=== PATIENT | male | born 1995 | race Caucasian/White ===

== ENCOUNTER 2023-04-26 06:38 | Observation (INO) ==
--- NOTE | 2023-04-26 07:00 | Emergency Department Note ---
Impression & Plan Acute appendicitis ED Provider Note Provider: Nelson Duff MD DATE OF SERVICE: 04/26/2023 CHIEF COMPLAINT: Abdominal discomfort HISTORY OF PRESENT ILLNESS: Patient is a 28-year-old gentleman presenting here stating that experiencing discomfort in his abdomen in the lower abdomen. Denies any nausea vomiting or diarrhea. Denies trauma. Denies significant chest pain or shortness of breath. States he feels most like he is hungry and is intense in nature in the lower abdominal region. Denies urinary issues. States initially little bit discomfort last Wednesday and then last and Wednesday. Was doing better on Wednesday but then yesterday particular yesterday evening into today more intense. Did try some citric acid the other day without improvement. Food and drink does not seem to change things and states he has been trying to stay hydrated. Denies a history of abdominal surgeries. Maybe a twinge of back discomfort earlier but none now. Denies discomfort. 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 NECK: Trachea midline. ENT: Mucous membranes pink and moist. LUNGS: Airway patent. No retractions. Breath sounds clear with good air entry bilaterally. HEART: Regular rate and rhythm. No chest wall tenderness ABDOMEN: Soft mid lower to right-sided abdominal tenderness. No left upper quadrant tenderness. No guarding. Not peritoneal. No significant flank tenderness. SKIN: Acyanotic, warm, dry, without rashes EXTREMITIES: Without swelling, tenderness or deformity NEUROLOGICAL: No focal deficits. No aphasia. No facial droop or slurred speech. Ambulatory. Patient's laboratory studies and imaging reviewed. Differential includes Appendicitis, testicular torsion, infections, diverticulitis, UTI, obstruction, mesenteric ischemia, aortic pathology, inflammatory bowel disease, renal colic, PUD, pancreatitis, biliary pathology, hernia, volvulus, constipation, as well as other pathologies. IMPRESSION/MEDICAL DECISION MAKING: Patient well-appearing and ambulatory. Mid to right-sided lower abdominal discomfort. Denies genital discomfort. No reproducible back pain with only a slight twinge earlier. Symptoms on and off for the last several days worse in the last couple of days. No nausea vomiting or diarrhea reported. Does not seem peritoneal. No history of abdominal surgeries. Given some Pepcid and Toradol here initially for symptom control. Given a bit of IV fluid. Blood work obtained. Urinalysis sent. Will obtain CT scanning of the pelvis to look for intra-abdominal pathology such as appendicitis, colitis, or obstruction but not presenting with classic obstructive symptoms. Does not seem that classic for cholecystitis or pancreatitis/hepatitis based on location and constellation of symptoms. Blood work here without anemia or thrombocytopenia but a mild leukocytosis of 13.9 is noted. Urinalysis without blood or white blood cells and thus not given thing for infection but is a bit concentrated with ketones. Again receiving IV fluids here. CT scan per radiology concerning for acute appendicitis with dilation to 12 mm and possibly small distal rupture with a 3.3 x 2.4 cm abscess. Given a dose of Zosyn here for antibiotic coverage. Findings seem consistent with appendicitis and likely early rupture. Abscess at the tip the appendix is not large in size. Not peritoneal on exam or in severe sepsis/septic shock. Discussed with general surgery Dr. Lee who will evaluate the patient for further care. Patient updated. 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[employer]) Feels Safe at Home: Yes Allergies Allergies Allergy/AdvReac Type Severity Reaction Status Date / Time No Known Allergies Allergy Unverified 07/12/21 15:22 Home Meds Home Medications Medication Instructions Recorded Confirmed No Known Home Medications 04/26/23 04/26/23 Results & Data (ED) Vital Signs Vital Signs - 24 hr 04/26/23 06:40 04/26/23 07:00 04/26/23 08:27 Temperature 36.4 C L Temperature Source Temporal Artery Scan Pulse Rate 117 H 77 Pulse Rate [Apical] Pulse Rate [Left Finger] 94 H Pulse Rate [Right Finger] Pulse Rhythm Regular Pulse Rhythm [Apical] Pulse Rhythm [Right Finger] Pulse Strength [Right Finger] Respiratory Rate 17 18 16 Respiratory Effort / Characteristics Non-Labored Respiratory Depth Normal Respiratory Pattern Blood Pressure 107/77 Blood Pressure [Left Arm] 109/66 Blood Pressure Mean 87 Blood Pressure Mean [Left Arm] 80 Blood Pressure Position [Left Arm] Pulse Oximetry 96 98 98 Oxygen Delivery Method Room Air Room Air Room Air Oxygen Flow Rate Sepsis Recent Fever Within 48 Hours No Sepsis New/Unexplained Change in Mental Status No Sepsis Action Taken by Nursing No Action Required 04/26/23 11:00 04/26/23 12:31 04/26/23 13:58 Temperature 37.1 C 37.2 C Temperature Source Oral Temporal Artery Scan Pulse Rate Pulse Rate [Apical] 77 Pulse Rate [Left Finger] 96 H Pulse Rate [Right Finger] 106 H Pulse Rhythm Pulse Rhythm [Apical] Regular Pulse Rhythm [Right Finger] Regular Pulse Strength [Right Finger] Normal Respiratory Rate 20 18 10 L Respiratory Effort / Characteristics Non-Labored Spontaneous Non-Labored Spontaneous Respiratory Depth Normal Normal Respiratory Pattern Regular Regular Blood Pressure Blood Pressure [Left Arm] 102/72 110/64 114/63 Blood Pressure Mean Blood Pressure Mean [Left Arm] 82 79 80 Blood Pressure Position [Left Arm] Lying Semi-fowlers Pulse Oximetry 98 98 100 Oxygen Delivery Method Room Air Oxymask Oxygen Flow Rate 7 Sepsis Recent Fever Within 48 Hours Sepsis New/Unexplained Change in Mental Status Sepsis Action Taken by Nursing Laboratory Data 04/26/23 07:03 04/26/23 07:03 Lab Results 04/26/23 04/26/23 Range/Units 07:03 08:41 WBC 13.93 H (4.8-10.8) K/ul RBC 5.11 (4.70-6.10) M/uL Hgb 15.5 (14.0-18.0) g/dl Hct 44.6 (42.0-52.0) % MCV 87.3 (80.0-100.0) fL MCH 30.3 (25.0-34.0) pg MCHC 34.8 (32.0-36.0) g/dL RDW Std Deviation 37.7 (36.4-46.3) fL RDW Coeff of [place] 11.7 (11.5-14.5) % Plt Count 298 (130-400) K/uL MPV 9.7 (9.4-12.4) fL Immature Gran % (Auto) 0.3 % Neut % (Auto) 83.3 % Lymph % (Auto) 7.5 % [place] % (Auto) 8.0 % Eos % (Auto) 0.7 % Baso % (Auto) 0.2 % Neut # (Auto) 11.60 H (1.40-6.50) K/uL Lymph # (Auto) 1.04 L (1.20-3.40) K/uL [place]y # (Auto) 1.12 H (0.11-0.59) K/uL Eos # (Auto) 0.10 (0.00-0.50) K/uL Baso # (Auto) 0.03 (0.00-0.20) K/uL Immature Gran # (Auto) 0.04 (0.01-0.20) K/uL Sodium 137 (136-145) mmol/L Potassium 3.6 (3.5-5.1) mmol/L Chloride 101 (98-107) mmol/L Carbon Dioxide 27 (21-32) mmol/L Anion Gap 9 (3-11) BUN 10 (6-23) mg/dl Creatinine 0.59 L (0.6-1.4) mg/dl Est Cr Clr Drug Dosing 158.0 ml/min Est GFR ( Amer) > 150.0 ml/min Est GFR (Non-Af Amer) 138.8 ml/min BUN/Creatinine Ratio 16.9 (10-20) Glucose 101 H (70-99(Fasting)) mg/dl Calcium 9.2 (8.6-10.3) mg/dl Total Bilirubin 1.0 (0.2-1.0) mg/dl AST 17 (13-39) U/L ALT 14 (7-52) U/L Alkaline Phosphatase 70 (34-104) U/L Total Protein 8.0 (6.0-8.3) gm/dl Albumin 4.6 (3.4-5.0) gm/dl Globulin 3.4 (2.5-4.0) gm/dl Albumin/Globulin Ratio 1.4 (0.9-2) Lipase 12 (11-82) U/L Urine Color Dark Yellow Urine Appearance Clear (Clear) Urine pH 6.0 (4.5-7.5) Ur Specific [place] 1.032 H (1.000-1.030) Urine Protein Trace H (Negative) Urine Glucose (UA) Negative (Negative) Urine Ketones 4+ H (Negative) Urine Blood Negative (Negative) Urine Nitrite Negative (Negative) Urine Bilirubin 1+ H (Negative) Urine Urobilinogen Negative (Negative) Ur Leukocyte Esterase Negative (Negative) Urine WBC (Auto) 1-5 (0-5) /hpf Urine RBC (Auto) 0-4 (0-4) /hpf U Hyaline Cast (Auto) 1-5 (0-5) /lpf U Epithel Cells (Auto) 0-5 (0-5) /lpf Urine Bacteria (Auto) Negative (Negative) SARS-CoV-2, RNA, NAAT NEGATIVE (NEGATIVE) Administered Medications Lactated Ringer's (Lr) 1,000 mls @ 15 mls/hr IV .Q24H ONEYDA Stop: 05/26/23 12:44 Last Infusion: 04/26/23 12:55 Dose: Infused Documented By: Admin: 04/26/23 12:42 Dose: 15 mls/hr Documented By: AMBAR Discontinued Medications Bupivacaine HCl/Epinephrine Bitart (Bupivacaine/Epinephrine 0.5% Mpf 1:200,000 30 Ml Vial) Confirm Administered Dose 30 ml .ROUTE .STK-MED ONE Stop: 04/26/23 12:00 Last Admin: 04/26/23 13:40 Dose: 20 ml Documented By: MARLON Sodium Chloride (Nss) 500 mls @ 999 mls/hr IV .Q31M STA Stop: 04/26/23 07:16 Last Infusion: 04/26/23 07:33 Dose: Infused Documented By: Admin: 04/26/23 07:02 Dose: 999 mls/hr Documented By: SIMBA Famotidine (Pepcid 20mg Iv Push) 20 mg in 5 mls @ 2.5 mls/min IV NOW STA Stop: 04/26/23 06:58 Last Admin: 04/26/23 07:14 Dose: 2.5 mls/min Documented By: SIMBA Sodium Chloride (Nss) 1,000 mls @ 999 mls/hr IV .Q1H1M ONE Stop: 04/26/23 08:39 Last Infusion: 02/19/24 10:11 Dose: Infused Documented By: Admin: 04/26/23 09:10 Dose: 999 mls/hr Documented By: SIMBA Piperacillin Sod/Tazobactam Sod (Zosyn) 4.5 gm in 100 mls @ 200 mls/hr IV NOW ONE Stop: 04/26/23 09:24 Last Infusion: 04/26/23 09:40 Dose: Infused Documented By: Admin: 04/26/23 09:10 Dose: 200 mls/hr Documented By: SIMBA Ioversol (Optiray 320 500ml) 94 ml IV ONCE ONE Stop: 04/26/23 08:11 Last Admin: 04/26/23 08:11 Dose: 94 ml Documented By: WICHO Ketorolac Tromethamine (Ketorolac Tromethamine 15 Mg/Ml Vial) 10 mg IV NOW ONE Stop: 04/26/23 06:58 Last Admin: 04/26/23 07:16 Dose: 10 mg Documented By: SIMBA Imaging Data Radiologist's Impression: Abdomen/Pelvis CT 04/26/23 06:[address] WITH IV CONTRAST CT DOSE: 412.23 mGy.cm HISTORY: mid lower abd pain TECHNIQUE: Multiaxial CT images of the abdomen and pelvis were performed following the use of intravenous contrast. A dose lowering technique was utilized adhering to the principles of ALARA. COMPARISON STUDY: None. FINDINGS: The lung bases are clear. No pneumoperitoneum. No pneumatosis. No acute fractures identified. The liver, gallbladder, spleen, adrenal glands, pancreas, and kidneys are unremarkable. No hydronephrosis. The main portal vein is patent. Normal caliber abdominal aorta. No retroperitoneal or pelvic lymphadenopathy. Normal bladder. A 1 cm midline cyst within the prostate gland favoring a utricle cyst. Trace pelvic free fluid. No dilated loops of small bowel to suggest an obstruction. Mild thickening of the cecal base which is likely reactive. The appendix is diffusely thickened and measures up to 12 mm in diameter consistent with acute appendicitis. There is a 6 mm appendicolith within the tip the appendix. There is a small periappendiceal abscess at the tip the appendix measuring 3.3 x 2.4 cm. Therefore, this is consistent with focal perforation at the tip the appendix. No extra luminal gas identified this time. Thickening and adjacent terminal ileum is likely reactive to the acute appendicitis. IMPRESSION: 1. Acute appendicitis with an associated small periappendiceal abscess measuring 3.3 x 2.4 cm as described above. 2. Trace pelvic free fluid. This is likely reactive to the acute appendicitis. 3. Thickening of the cecal base and adjacent terminal ileum is likely reactive to the acute appendicitis. ACT 112: Negative or not required by law. Electronically signed by: Koby Barnes M.D. 04/26/2023 8:52 AM Discharge Plan Visit Data Chief Complaint: Abdominal Pain Stated Complaint: ABD PAIN ED Provider: Nelson Duff Discharge Problem: Acute appendicitis Patient Disposition: Being Evaluated by Surgeon Discharge Instructions Interventions: ED Discharge Assessment Last Done: 04/26/23 12:17 Forms Stand Alone Forms: Market[employer]rief Prescriptions Prescriptions: No Action No Known Home Medications Referrals Referrals: PCP,NO [Primary Care Provider] - Discharge Problem: Acute appendicitis Qualifiers: Acute appendicitis type: with localized peritonitis Appendicitis gangrene presence: with gangrene Appendicitis perforation presence: with perforation A ppendicitis abscess presence: with abscess Qualified Code(s): K35.33 - Acute appendicitis with perforation, localized peritonitis, and gangrene, with abscess
[2023-04-26] MEDS: SODIUM CHLORIDE 0.9% 500 ML IV STA (07:02)
[2023-04-26] MEDS: FAMOTIDINE 20MG IV PUSH 20 MG/5 ML SYR IV STA (07:14)
[2023-04-26] MEDS: KETOROLAC TROMETHAMINE 15 MG/ML VIAL IV ONE (07:16)
[2023-04-26 07:23] LABS: Appearance Urine Clear (Clear); Bacteria Urine Automated Negative (Negative); Blood Urine Negative (Negative); Color Urine Dark Yellow; Epithelial Cell Urine Auto 0-5 /lpf (0-5); Glucose Urine UA Negative (Negative); Ketones Urine 4+ (Negative); Leukocyte Esterase Urine Negative (Negative); Nitrite Urine Negative (Negative); Protein Urine Trace (Negative); RBC Urine Automated 0-4 /hpf (0-4); Specific Gravity Urine 1.032 (1.000-1.030); Urobilinogen Urine Negative (Negative)
[2023-04-26 07:26] LABS: Basophils # (auto) 0.03 K/uL (0.00-0.20); Basophils % (auto) 0.2 %; Eosinophils % (auto) 0.7 %; Hematocrit (blood only) 44.6 % (42.0-52.0); Hemoglobin 15.5 g/dl (14.0-18.0); Immature Granulocytes # (auto) 0.04 K/uL (0.01-0.20); Immature Granulocytes % (auto) 0.3 %; Lymphocytes # (auto) 1.04 K/uL (1.20-3.40); Lymphocytes % (auto) 7.5 %; Mean Corpuscular Hemoglobin 30.3 pg (25.0-34.0); Mean Corpuscular Hgb Conc 34.8 g/dL (32.0-36.0); Mean Corpuscular Volume 87.3 fL (80.0-100.0); Mean Platelet Volume 9.7 fL (9.4-12.4); Monocytes # (auto) 1.12 K/uL (0.11-0.59); Neutrophils % (auto) 83.3 %; Platelet Count 298 K/uL (130-400); RDW Coefficient of Variation 11.7 % (11.5-14.5); RDW Standard Deviation 37.7 fL (36.4-46.3); Red Blood Count 5.11 M/uL (4.70-6.10); White Blood Count 13.93 K/ul (4.8-10.8)
[2023-04-26 07:38] LABS: Bilirubin Urine 1+ (Negative)
[2023-04-26 07:43] LABS: Alanine Aminotransferase 14 U/L (7-52); Albumin Globulin Ratio 1.4 (0.9-2); Albumin Level 4.6 gm/dl (3.4-5.0); Alkaline Phosphatase 70 U/L (34-104); Anion Gap 9 (3-11); Aspartate Aminotransferase 17 U/L (13-39); BUN Creatinine Ratio 16.9 (10-20); Blood Urea Nitrogen 10 mg/dl (6-23); Calcium 9.2 mg/dl (8.6-10.3); Carbon Dioxide 27 mmol/L (21-32); Chloride 101 mmol/L (98-107); Est GFR (African American) > 150.0 ml/min; Est GFR (Non-African American) 138.8 ml/min; Globulin 3.4 gm/dl (2.5-4.0); Glucose 101 mg/dl (70-99(Fasting)); Lipase 12 U/L (11-82); Potassium 3.6 mmol/L (3.5-5.1); Sodium 137 mmol/L (136-145)
[2023-04-26] MEDS: OPTIRAY 320 500ml IV ONE (08:11)
--- NOTE | 2023-04-26 08:54 | CT Scan Report ---
ABDOMEN AND PELVIS CT WITH IV CONTRAST CT DOSE: 412.23 mGy.cm HISTORY: mid lower abd pain TECHNIQUE: Multiaxial CT images of the abdomen and pelvis were performed following the use of intrave nous contrast. A dose lowering technique was utilized adhering to the principles of ALARA. COMPARISON STUDY: None. FINDINGS: The lung bases are clear. No pneumoperitoneum. No pneumatosis. No acute fractures identifie d. The liver, gallbladder, spleen, adrenal glands, pancreas, and kidneys are unremarkable. No hydrone phrosis. The main portal vein is patent. Normal caliber abdominal aorta. No retroperitoneal or pelvic lymphadenopathy. Normal bladder. A 1 cm midline cyst within the prostate gland favoring a utricle cy st. Trace pelvic free fluid. No dilated loops of small bowel to suggest an obstruction. Mild thickeni ng of the cecal base which is likely reactive. The appendix is diffusely thickened and measures up to 12 mm in diameter consistent with acute appendicitis. There is a 6 mm appendicolith within the tip t he appendix. There is a small periappendiceal abscess at the tip the appendix measuring 3.3 x 2.4 cm. Therefore, this is consistent with focal perforation at the tip the appendix. No extra luminal gas i dentified this time. Thickening and adjacent terminal ileum is likely reactive to the acute appendici tis. IMPRESSION: 1. Acute appendicitis with an associated small periappendiceal abscess measuring 3.3 x 2.4 cm as desc ribed above. 2. Trace pelvic free fluid. This is likely reactive to the acute appendicitis. 3. Thickening of the cecal base and adjacent terminal ileum is likely reactive to the acute appendici tis. ACT 112: Negative or not required by law. Electronically signed by: Koby Barnes M.D. 04/26/2023 8:52 AM
[2023-04-26] MEDS: PIPERACILLIN/TAZOBACTAM 4.5 GM/100 ML BAG IV ONE (09:10)
[2023-04-26] MEDS: SODIUM CHLORIDE 0.9% 1,000 ML IV ONE (09:10)
--- NOTE | 2023-04-26 10:53 | Anesthesiology Consultation ---
Date of Service April 26, 2023 Assessment & Plan (1) Encounter for pre-operative examination: Chart Review Chart Review: Acceptable Risk for Surgery History Surgery Operation Date: 04/26/23 07:50 Proposed Procedures p Laparoscopic Appendectomy - Edil Lee MD Height/Weight Height: 5 ft 7 in Weight: 59.4 kg Allergies Allergy/AdvReac Type Severity Reaction Status Date / Time No Known Allergies Allergy Unverified 07/12/21 15:22 Medications Home Medications Medication Instructions Recorded Confirmed Last Taken No Known Home Medications 04/26/23 04/26/23 Unknown Past Medical History Medical History (Updated 04/26/23 @ 10:54 by Jorge Goddard MD) No active medical problems Past Family History Family History Other Family history non-contributory Past Surgical History Surgical History (Updated 04/26/23 @ 10:54 by Jorge Goddard MD) No pertinent past surgical history Social History Smoking Status: Never smoker Physical Exam Vital Signs Last Vital Signs Temp 36.4 C L 04/26/23 06:40 Pulse 94 H 04/26/23 08:27 Resp 16 04/26/23 08:27 BP 109/66 04/26/23 08:27 Pulse Ox 98 04/26/23 08:27 O2 Del Method Room Air 04/26/23 08:27 Testing Laboratory Results 04/26/23 07:03 04/26/23 07:03 Urine Color Dark Yellow 04/26/23 07:03 Urine Appearance Clear (Clear) 04/26/23 07:03 Urine pH 6.0 (4.5-7.5) 04/26/23 07:03 Ur Specific [place] 1.032 (1.000-1.030) H 04/26/23 07:03 Urine Protein Trace (Negative) H 04/26/23 07:03 Urine Glucose (UA) Negative (Negative) 04/26/23 07:03 Urine Ketones 4+ (Negative) H 04/26/23 07:03 Urine Nitrite Negative (Negative) 04/26/23 07:03 Ur Leukocyte Esterase Negative (Negative) 04/26/23 07:03 Urine WBC (Auto) 1-5 /hpf (0-5) 04/26/23 07:03 Urine RBC (Auto) 0-4 /hpf (0-4) 04/26/23 07:03 U Hyaline Cast (Auto) 1-5 /lpf (0-5) 04/26/23 07:03 U Epithel Cells (Auto) 0-5 /lpf (0-5) 04/26/23 07:03 Urine Bacteria (Auto) Negative (Negative) 04/26/23 07:03
[2023-04-26] MEDS ORDERED: fentaNYL citrate PF 100 MCG/2 ML VIAL ONE (11:48)
[2023-04-26] MEDS ORDERED: MIDAZOLAM HCL 1 MG/ML 2ML VIAL ONE (11:48)
[2023-04-26] MEDS ORDERED: ROCURONIUM BROMIDE 10 MG/ML 5 ML VIAL IV ONE (11:49)
[2023-04-26] MEDS ORDERED: DEXAMETHASONE SOD INJ 4 MG/ML VIAL ONE (11:49)
[2023-04-26] MEDS ORDERED: PROPOFOL IV EMULSION 10 MG/ML 20 ML VIAL IV ONE (11:49)
[2023-04-26] MEDS ORDERED: ONDANSETRON INJ 2 MG/ML 2 ML VIAL ONE (11:49)
[2023-04-26] MEDS ORDERED: LIDOCAINE 2% 2 ML VIAL/AMP(20MG/ML) INFIL ONE (11:49)
[2023-04-26] MEDS ORDERED: ACETAMINOPHEN 1000 MG/100 ML IV IV ONE (11:52)
[2023-04-26] MEDS ORDERED: fentaNYL citrate PF 100 MCG/2 ML VIAL IV PRN (12:35)
[2023-04-26] MEDS ORDERED: PROMETHAZINE HCL 6.25 MG in SODIUM CHLORIDE 0.9% 50 ML IV PRN (12:35)
[2023-04-26] MEDS ORDERED: ONDANSETRON INJ 2 MG/ML 2 ML VIAL IV PRN ×2 (12:35→15:42)
[2023-04-26] MEDS ORDERED: ATROPINE SULFATE 0.1 MG/ML 10ML SYR IV PRN (12:35)
[2023-04-26] MEDS ORDERED: KETOROLAC 30 MG/ML VIAL IV PRN (12:35)
[2023-04-26] MEDS: LACTATED RINGER'S 1,000 ML IV SCH ×2 (12:42→15:49)
--- NOTE | 2023-04-26 12:43 | History & Physical Report ---
Date of Service April 26, 2023 Assessment & Plan (1) Acute appendicitis: Plan: IVF IV zosyn to OR for lap appendectomy Acute appendicitis type: with localized peritonitis Appendicitis abscess presence: with abscess Appendicitis gangrene presence: with gangrene Appendicitis perforation presence: with perforation Qualified Code(s): K35.33 - Acute appendicitis with perforation, localized peritonitis, and gangrene, with abscess Present on Admission?: Yes History of Present Illness Primary Care Provider: NO PCP This is a 28-year-old with acute appendicitis by CT scam. He has had pain for a few days but no nausea, vomiting or diarrhea. He has no fevers or chils; denies dysuria. CT scan shows acute appendicitis with small abscess on tip of appendix . Allergies Allergy/AdvReac Type Severity Reaction Status Date / Time No Known Allergies Allergy Unverified 07/12/21 15:22 Home Medications Medication Instructions Recorded Confirmed Type No Known Home Medications 04/26/23 04/26/23 History Past Med/Surg History Medical History (Updated 04/26/23 @ 10:54 by Jorge Goddard MD) No active medical problems Surgical History (Updated 04/26/23 @ 10:54 by Jorge Goddard MD) No pertinent past surgical history Family History Other Family history non-contributory Social History (Updated 07/13/21 @ 12:04 by Damian Rogers MD) Smoking Status: Never smoker Preferred Language: British current occupational status: other 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[employer]) Feels Safe at Home: Yes Review of Systems no fever and no chills no problem reported no problem reported + dyspnea; no cough no chest pain + abdominal pain; no nausea, no vomiting and no diarrhea/loose stools no dysuria no back pain no problem reported no localized weakness and no generalized weakness no behavioral changes + fatigue no easy bleeding and no easy bruising Physical Exam Constitutional: WD/WN, vitals as above Eyes: PERRL, conjunctivae normal, anicteric sclerae ENMT: external ear and nose normal, oropharynx normal Neck: trachea midline Respiratory: normal respiratory effort, lungs clear to auscultation Cardiovascular: RRR, no murmur, no edema Gastrointestinal (Abdomen): Inspection/Auscultation: abdomen normal to inspection and normal bowel sounds; abdomen not distended Percussion/Palpation: + abdomen tender and abdomen soft; no guarding and abdomen not rigid Musculoskeletal: Head/Neck/Chest: normocephalic and head atraumatic Skin: no rashes, warm and dry ASA Classification ASA ASA1E Results & Data Vital Signs (Past 12 Hours) Vital Signs Temp Pulse Pulse Pulse Resp BP BP 04/26/23 12:31 37.1 C 106 H 18 110/64 04/26/23 11:00 96 H 20 102/72 04/26/23 08:27 94 H 16 109/66 04/26/23 07:00 77 18 04/26/23 06:40 36.4 C L 117 H 17 107/77 Pulse Ox O2 Del Method 04/26/23 12:31 98 Room Air 04/26/23 11:00 98 04/26/23 08:27 98 Room Air 04/26/23 07:00 98 Room Air 04/26/23 06:40 96 Room Air Diagnostic Findings ABDOMEN AND PELVIS CT WITH IV CONTRAST CT DOSE: 412.23 mGy.cm HISTORY: mid lower abd pain TECHNIQUE: Multiaxial CT images of the abdomen and pelvis were performed following the use of intravenous contrast. A dose lowering technique was utilized adhering to the principles of ALARA. COMPARISON STUDY: None. FINDINGS: The lung bases are clear. No pneumoperitoneum. No pneumatosis. No acute fractures identified. The liver, gallbladder, spleen, adrenal glands, pancreas, and kidneys are unremarkable. No hydronephrosis. The main portal vein is patent. Normal caliber abdominal aorta. No retroperitoneal or pelvic lymphadenopathy. Normal bladder. A 1 cm midline cyst within the prostate gland favoring a utricle cyst. Trace pelvic free fluid. No dilated loops of small bowel to suggest an obstruction. Mild thickening of the cecal base which is likely reactive. The appendix is diffusely thickened and measures up to 12 mm in diameter consistent with acute appendicitis. There is a 6 mm appendicolith within the tip the appendix. There is a small periappendiceal abscess at the tip the appendix measuring 3.3 x 2.4 cm. Therefore, this is consistent with focal pe rforation at the tip the appendix. No extra luminal gas identified this time. Thickening and adjacent terminal ileum is likely reactive to the acute appendicitis. IMPRESSION: 1. Acute appendicitis with an associated small periappendiceal abscess measuring 3.3 x 2.4 cm as described above. 2. Trace pelvic free fluid. This is likely reactive to the acute appendicitis. 3. Thickening of the cecal base and adjacent terminal ileum is likely reactive to the acute appendicitis. Code Status & VTE Plan Code Status Full code VTE Prophylaxis Plan VTE Prophylaxis will be ordered: Yes
[2023-04-26] MEDS ORDERED: GLYCOPYRROLATE 0.2 MG/ML VIAL ONE (13:25)
[2023-04-26] MEDS ORDERED: SUGAMMADEX SODIUM 200 MG/2 ML VIAL IV ONE (13:35)
[2023-04-26] MEDS: BUPIVACAINE/EPINEPHRINE 0.5% MPF 1:200,000 30 ML VIAL ONE (13:40)
--- NOTE | 2023-04-26 13:46 | Post Operative Brief Note ---
Immediate Post Op Note v1 Date of Surgery April 26, 2023 Pre & Post Diagnosis Operation Date: 04/26/23 07:50 <No data on this case meets the specified criteria> I identified the patient and participated in the time-out.: Yes Procedure Operation Date: 04/26/23 07:50 <No data on this case meets the specified criteria> Surgeon Edil Lee MD [employer] As[employer]er none Estimated Blood Loss 5 Findings Consistent with Post-Op Diagnosis
--- NOTE | 2023-04-26 13:52 | Operative Report ---
Post Operative Report Pre & Post Diagnosis Operation Date: 04/26/23 07:50 <No data on this case meets the specified criteria> I identified the patient and participated in the time-out.: Yes Procedure Operation Date: 04/26/23 07:50 <No data on this case meets the specified criteria> Laparoscopic appendectomy Surgeon Edil Lee MD Temperature Control Inspector none Estimated Blood Loss 5 Findings Consistent with Post-Op Diagnosis Acute appendicitis with a small abscess Specimens Appendix to pathology Drains None Anesthesia Type General Complications None Indications This is a 28-year-old male who was admitted to the emergency department with acute abdominal pain. He had a workup by CT scan which showed an acute appendicitis with a small contained abscess. We talked in detail about this and recommended laparoscopic appendectomy. Went over the risks in detail. Description of Procedure The patient was taken to the OR and underwent excellent general anesthesia. Their abdomen was prepped and draped in normal sterile fashion. A transverse supraumbilical incision was made, towel clamps were used to create tension on the abdominal wall. A varies needle was inserted gently into the peritoneal cavity. Good pneumoperitoneum was achieved to about 15 mmHg pressure. Once this was done visualized 11 port was placed in the supraumbilical position. A 12 mm left lower quadrant port , a 5mm suprapubic port , and a 5mm right upper quadrant port were placed in normal fashion. Patient was then placed in head down and rolled to the left. A good diagnostic lap was performed. They had obvious acute appendicitis with a small contained abscess in the RLQ. The cecum was grasped with an atraumatic grasper. A grasper was then was then used to grasp the tip of the appendix. The mesoappendix was splayed open and a harmonic scalpel was used to take down the mesoappendix. The base of the appendix was identified. An Endo LIO stapler was used to transect the appendix at its base. The base of the appendix was placed on tension and the small abscess was freed up. A small amount of pus was suctioned. A Endobag was then inserted through the left lower quadrant port and the appendix was placed into the bag, The bag was removed through the left lower quadrant port. The appendix was then sent for pathologic evaluation. Pneumoperitoneum was re- established and the port replaced. A liter of saline was then used to irrigate the abdomen. There was no active bleeding nor any other abnormalities noted in the abdomen. Patient was then placed back in neutral position and the ports were removed the pneumoperitoneum decompressed. The 12mm port fascia was then closed using a 0 Vicryl. The skin was then anesthetized with 0.5% Marcaine with epinephrine local. Interrupted Vicryl is used to close the skin. Steri-Strips and benzoin were used to reinforce the incisions. Sterile dressings were applied. Patient tolerated procedure without complication was sent to the postop recovery period of observation. They will be sent to the floor for the rest of their care. I attest to the content of the Intraoperative Record and any orders documented therein. Any exceptions are noted below.
--- NOTE | 2023-04-26 14:35 | Anesthesiology Progress Note ---
Date of Service April 26, 2023 Anesthesia Post Procedure Vital Signs Vital Signs: Temp Pulse Pulse Pulse Pulse Resp BP 04/26/23 14:25 86 23 04/26/23 14:15 86 18 04/26/23 14:05 67 17 04/26/23 13:58 37.2 C 77 10 L 04/26/23 12:31 37.1 C 106 H 18 04/26/23 11:00 96 H 20 04/26/23 08:27 94 H 16 04/26/23 07:00 77 18 04/26/23 06:40 36.4 C L 117 H 17 107/77 BP Pulse Ox O2 Del Method O2 Flow Rate 04/26/23 14:25 118/64 97 Room Air 04/26/23 14:15 112/67 98 Room Air 04/26/23 14:05 121/63 100 Oxymask 7 04/26/23 13:58 114/63 100 Oxymask 7 04/26/23 12:31 110/64 98 Room Air 04/26/23 11:00 102/72 98 04/26/23 08:27 109/66 98 Room Air 04/26/23 07:00 98 Room Air 04/26/23 06:40 96 Room Air Pain Intensity Left Abdomen: Pain Intensity: 3 Transfer of Care Handoff Completed per policy Notes Mental Status: alert / awake / arousable and participated in evaluation Patient Amnestic to Procedure: Yes Nausea / Vomiting: adequately controlled Pain: adequately controlled Airway Patency, RR, SpO2: stable & adequate BP & HR: stable & adequate Hydration State: stable & adequate Anesthetic Complications: no major complications apparent and Pt Satisfied with anesthetic care
[2023-04-26] MEDS ORDERED: MoRPHine SULFATE 4 MG/ML 1 ML CARP\\VIAL IV PRN (15:42)
[2023-04-26] MEDS ORDERED: ACETAMINOPHEN 325 MG TAB PO PRN (15:42)
[2023-04-26] MEDS: oxyCODONE/ACETAMINOPHEN 5mg/325mg TAB PO PRN (15:52)
[2023-04-26] MEDS ORDERED: INFLUENZA VIRUS QUADRIVALENT VACCINE (IIV4) 0.5 ML SYR IM ONE (16:13)
[2023-04-26] MEDS: PIPERACILLIN/TAZOBACTAM 4.5 GM in DEXTROSE 5% MINI-B 100 ML IV SCH (17:16)
[2023-04-26] MEDS: MoRPHine SULFATE 2 MG/ML CARP IV PRN (19:01)
[2023-04-27] MEDS: oxyCODONE/ACETAMINOPHEN 5mg/325mg TAB PO PRN (05:05)
== END 2023-04-27 14:20 | disposition home or self-care (01) ==
LOC: 3W 06:38 → ED 06:38 → 3W 12:17
DX: K38.1 Appendicular concretions; K35.33 Acute appendicitis with perforation, localized peritonitis, and gangrene, with abscess; Z11.52 Encounter for screening for COVID-19